=== PATIENT | female | born 1975 | race Caucasian/White ===

== ENCOUNTER → 2018-03-08 | Outpatient (CLI) | payer BC ==
--- NOTE | 2018-03-08 19:27 | CT ---
EXAMINATION TYPE: CT abdomen wo con DATE OF EXAM: 03/08/2018 COMPARISON: NONE HISTORY: lt kidney stone CT DLP: 459 mGycm Automated exposure control for dose reduction was used. TECHNIQUE: Helical acquisition of images was performed from the lung bases through the top of iliac crest to include entire abdomen. CONTRAST: Performed without Oral Contrast and without IV contrast. FINDINGS: Lung bases are clear. There is no pleural effusion. There is no pericardial effusion. Liver spleen pancreas gallbladder appear normal. Bile ducts are not dilated. There is no adrenal mass . There is a 1 cm dense calcification in the posterior left kidney. Kidneys have normal size. I see n o hydronephrosis. Ureters are not dilated. There is no retroperitoneal adenopathy. Appendix appears n ormal. I see no bony destructive process. There is posterior right-sided L5-S1 lumbar disc herniation . I see no intestinal wall thickening. IMPRESSION: DENSE NONOBSTRUCTING LEFT RENAL CALCULUS. L5-S1 RIGHT SIDE POSTERIOR LUMBAR DISC HERNIATION.
== END | disposition home or self-care (01) ==
LOC: RADCTMAIN 18:13
PROVIDERS: ATTEND Urology
DX: N20.0 Calculus of kidney (principal)
CPT/HCPCS: 74150

== ENCOUNTER 2023-10-11 07:04 | Day surgery (SDC) | payer BC ==
[2023-10-03 16:12] VITALS: BMI 27.3
[~2023-10-11 07:04] MED LIST: LACTATED RINGERS 1,000 ML IV SCH; LIDOCAINE 1% (10MG/ML) FOR IV START INTRADERMA PRN
[2023-10-11 07:41] VITALS: TEMP 97.7
[2023-10-11] MEDS ORDERED: PROPOFOL 10 MG/ML 20 ML VIAL IV ONE (08:17)
--- NOTE | 2023-10-11 08:20 | P.GSHP ---
History of Present Illness H&P Date: 10/11/23 Chief Complaint: Screening colonoscopy This is a 48-year-old female who presents today for screening colonoscopy. Patient denies a significant GI complaints. Past Medical History Additional Past Medical History / Comment(s): Infection from a kidney stone 5 years ago History of Any Multi-Drug Resistant Organisms: None Reported Past Surgical History: Tonsillectomy Additional Past Surgical History / Comment(s): Kidney surgery Past Anesthesia/Blood Transfusion Reactions: No Reported Reaction Smoking Status: Former smoker - Past Family History Mother Family Medical History: No Reported History Medications and Allergies Home Medications Medication Instructions Recorded Confirmed Type Multivitamin [Multivitamins Adult 1 each PO DAILY 10/03/23 10/03/23 History Gummies] Allergies Allergy/AdvReac Type Severity Reaction Status Date / Time No Known Allergies Allergy Verified 10/03/23 15:41 Surgical - Exam Vital Signs Temp Pulse Resp BP Pulse Ox 97.7 F 67 16 123/76 99 10/11/23 07:28 10/11/23 07:28 10/11/23 07:28 10/11/23 07:28 10/11/23 07:28 - General well developed, well nourished, no distress - Eyes PERRL - ENT normal pinna - Neck no masses - Respiratory normal expansion - Cardiovascular Rhythm: regular - Abdomen Abdomen: soft, non tender Assessment and Plan Assessment: We'll perform screening colonoscopy.
--- NOTE | 2023-10-11 08:38 | P.OP ---
Date of Procedure: 10/11/23 Preoperative Diagnosis: Screening colonoscopy Postoperative Diagnosis: Normal colon Procedure(s) Performed: Colonoscopy Anesthesia: MAC Surgeon: Jeremiah Shaikh Pathology: none sent Condition: stable Disposition: PACU Description of Procedure: The patient's placed on the endoscopy table in the lateral position. She received IV sedation. The digital rectal exam was performed. This revealed no abnormalities. The flexible colonoscope was then placed patient anus and passed throughout the entire colon. The ileocecal valve was visualized. The cecum, ascending and transverse colon appeared normal. The descending and sigmoid colon appeared normal. The rectum appeared normal. Scope was withdrawn for patient.
[2023-10-11 09:18] VITALS: BP 102/68; PULSE 68; RESP 18
== END 2023-10-11 09:13 | disposition home or self-care (01) ==
LOC: ORWHC2ENDO 07:04
PROVIDERS: ATTEND Surgery
DX: Z12.11 Encounter for screening for malignant neoplasm of colon (principal); Z87.442 Personal history of urinary calculi; Z87.891 Personal history of nicotine dependence
CPT/HCPCS: 81025; 45378; J2704